=== PATIENT | male | born 1965 | race Caucasian/White ===

== ENCOUNTER 2023-10-08 14:33 | Outpatient (OUT) | payer OTHER, SELFPAY | END 2023-10-08 14:34 | disposition home or self-care (01) | LOC: PST 14:33 | PROVIDERS: Family Provider Family Medicine; Visit Provider Surgery | DX: Z01.818 Encounter for other preprocedural examination (principal); Z12.11 Encounter for screening for malignant neoplasm of colon ==

== ENCOUNTER 2023-10-22 10:57 | Day surgery (SDC) | payer OTHER, SELFPAY ==
[2023-10-22 11:10] VITALS: BP 125/73; PULSE 74; TEMP 36.2; O2SAT 97; BMI 25.3
--- OUTSIDE RECORDS SUMMARY | 2023-10-22 11:13 | XMS_ITS | CCD ---
Author Organization [facility] Care Team Providers Care [employer] Worker Name Role Phone SHAIKH PAYNE Attending Unavailable SHAWNEE ARMENDARIZ Attending Unavailable Encounters Encounter Date Encounter Type Care Provider Facility Start: 09-25-2023 End: 09-25-2023 ambulatory SHAWNEE ARMENDARIZ Not Available Start: 07-01-2023 End: 07-01-2023 ambulatory SHAIKH ELMER Not Available Payers Date Payer Category Payer Unknown [id number] 1965 Unknown [id number] 1965 Unknown [id number] Summary Purpose Family History No Family History Records Found Advance Directives No Advanced Directives Records Found Additional Source Comments (unrecognized sect ion and content) No Status Records Found INFORMATION SOURCE (unrecogn ized section and content) DATE CREATED AUTHOR 09/27/2023 [facility] EPIC FOR RECORDS PERTAINING TO PATIENTS WHO ARE OR HAVE BEEN ENROLLED IN A CHEMICAL DEPENDENCY/SUBSTANCEABUSE PROGRAM, SOME INFORMATION MAY BE OMITTED. This clinical summary was aggregated from multiple sources. Caution should be exercised in using it in the provision of clinical care. This summary normalizes information from multiple sources, and as a consequence, information in this document may materially change the coding, format and clinical context of patient data. In addition, data may be omitted in some cases. CLINICAL DECISIONS SHOULD BE BASED ON THE PRIMARY CLINICAL RECORDS. [facility] [employer] provides no warranty or guarantee of the accuracy or completeness of information in this document.
[2023-10-22] MEDS: LACTATED RINGER'S SOLUTION 1,000 ML 50 ML IV (11:32)
--- NOTE | 2023-10-22 11:48 | W.PM.PROCNOT ---
Date of procedure: 10/22/23 Pre-op diagnosis: screening colonoscopy Post-op diagnosis: same as pre-op Procedure: Previous colonoscopy: never procedure: screening colonoscopy The patient was given IV conscious sedation.? The patient's SPO2 remained above 90% throughout the procedure. The colonoscope was inserted per rectum and advanced under direct vision to the cecum without difficulty.? The prep was good.? Findings: Terminal ileum os: normal Cecum/Ascending colon: normal Transverse colon: normal Descending/Sigmoid colon: normal Rectum/Anus: examined in normal and retroflexed positions and was normal Withdrawal Time was (minutes): 8 The colon was decompressed and the scope was removed.? The patient tolerated the procedure well. Recommendations/Plan: 1.? Lifestyle and dietary modifications as discussed 2.? F/U in 10 years 3.? Discussed with the family Anesthesia: MAC Surgeon: Srinivasan Ayala Estimated blood loss (mL): 0 Pathology: none sent Condition: stable Disposition: PACU
[2023-10-22 12:02] VITALS: BP 106/61; PULSE 79; TEMP 36.3; O2SAT 96
[2023-10-22 12:17] VITALS: BP 103/66; PULSE 57; O2SAT 97
[2023-10-22 12:32] VITALS: BP 117/75; PULSE 59; O2SAT 98
== END 2023-10-22 12:32 | disposition home or self-care (01) ==
PROVIDERS: Family Provider Family Medicine; Visit Provider Surgery
PROC: (CPT 812; principal; 2023-10-22 10:50)
DX: Z12.11 Encounter for screening for malignant neoplasm of colon (principal)
CPT/HCPCS: 45378; J2704